=== PATIENT | male | born 1975 | race Caucasian/White ===

== ENCOUNTER 2020-07-26 06:57 | Emergency (ER) | payer SELFPAY ==
--- NOTE | 2020-07-26 16:02 | RAD ---
XR LUMBAR SPINE 2-3V 07/26/2020 9:00 AM Indication: Back pain COMPARISON: None available TECHNIQUE: 3 views of the lumbar spine are provided. Findings: Alignment of the lumbar spine is normal. Vertebral body heights are maintained. No acute fracture is identified. Disc heights are maintained. No significant endplate degenerative changes are identified. There is no significant facet arthropathy. No significant osseous neuroforaminal stenosis or spinal canal stenos is. Nonobstructive bowel gas pattern. Visualized portions of the sacrum appear intact. Impression: No acute fracture or malalignment of the lumbar spine. Electronically signed by: Kristan Syed MD (07/26/2020 3:59 PM) [id number]
--- NOTE | 2020-07-26 16:05 | RAD ---
AP VIEW OF THE PELVIS Clinical indications: Back pain. FINDINGS: There is mild degenerative spurring of the left femoral head and mild degenerative joint sp lyndsey narrowing of the left hip joint. No acute fracture dislocation or lytic process is seen. 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 THREE-VIEW LEFT ELBOW STUDY Clinical indications: Left elbow pain. FINDINGS: No joint effusion is seen. No acute fracture or dislocation or lytic process is seen. No si gnificant arthritic change is evident. IMPRESSION: No significant osseous abnormality. Electronically signed by: Jermain Lopez MD (07/26/2020 4:03 PM) [id number]
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
== END 2020-07-26 08:40 | disposition home or self-care (01) ==
LOC: ER 06:57
DX: M70.22 Olecranon bursitis, left elbow (principal); M54.5 Low back pain; M53.3 Sacrococcygeal disorders, not elsewhere classified; V47.9XXA Unspecified car occupant injured in collision with fixed or stationary object in traffic accident, initial encounter; Y93.89 Activity, other specified; Y92.89 Other specified places as the place of occurrence of the external cause; Y99.8 Other external cause status
CPT/HCPCS: 72100; 72170; 73080; 99284

== ENCOUNTER 2020-08-02 00:42 | Emergency (ER) | payer OTHER ==
[~2020-08-02] VITALS: Ht 167.6 cm; Wt 68.0 kg
[2020-08-02 00:42] VITALS: BP 143/81
[2020-08-02] MEDS ORDERED: TETRACAINE 0.5% OPHTH SOLUTION 4ML BOTTLE. ONE (00:58)
[2020-08-02] MEDS ORDERED: FLUORESCEIN 1MG EYE STRIP. ONE (00:58)
[2020-08-02] MEDS: TETRACAINE 0.5% OPHTH SOLUTION 4ML BOTTLE. OD ONE (01:11)
[2020-08-02] MEDS: FLUORESCEIN 1MG EYE STRIP. OD ONE (01:12)
--- NOTE | 2020-08-02 01:12 | PHYS DOC ---
Past History Past Medical History: No Pertinent History Past Surgical History: No Surgical History Alcohol Use: None General Adult EDM: Chief Complaint: EYE PROBLEMS HPI: HPI: Patient is a 45-year-old male coming in for right knee pain. Patient states he was contacted when he went to take them out tonight noticed that his right contacted ripped and only part of it came out. Is unsure if it is still in his eye. Complaining of burning pain. No other complaints. Review of Systems: Review of Systems: All other systems within normal limits except for as noted in the HPI Current Medications: Current Meds: Current Medications Medications (Trade) Dose Ordered Sig/Carlton Start Time Stop Time Status Last Admin Dose Admin Fluorescein Sodium (Ful-Araceli 1mg) 1 strip 1X ONCE 08/02/20 01:00 08/02/20 01:01 UNV Tetracaine HCl (Tetracaine) 1 drop 1X ONCE 08/02/20 01:00 08/02/20 01:01 UNV Allergies: Allergies: Allergies Coded Allergies Type Severity Reaction Last Updated Verified No Known Drug Allergies 07/26/20 No Physical Exam: PE: Constitutional: Well developed, well nourished, no acute distress, non-toxic appearance. [] HENT: Normocephalic, atraumatic, bilateral external ears normal, nose normal. [] Eyes: PERRLA, conjunctiva normal, no discharge. Slight injection of right con junctive a. Viewed with fluorescein and Wood's lamp, can see remainder of contact in the superior aspect of eye underneath upper eyelid. No abrasions or abnormalities of conjunctivae or cornea [] Neck: No rigidity, supple, no stridor. [] Cardiovascular: Regular rate and rhythm, brisk cap refill [] Lungs & Thorax: Non labored symmetric respirations, no tachypnea or respiratory distress [] Abdomen: Soft, nondistended. Skin: Warm, dry, no erythema, no rash. [] Back: Unremarkable Extremities: No deformities, range of motion grossly intact, no lower extremity edema [] Neurologic: Alert and oriented X 3, no focal deficits noted. [] Psychologic: Affect normal, judgement normal, mood normal. [] Current Patient Data: Vital Signs: Vital Signs Date Time Temp Pulse Resp B/P (MAP) Pulse Ox O2 Delivery O2 Flow Rate FiO2 08/02/20 00:42 98.1 71 18 143/81 (101) 98 Room Air EKG: EKG: [] Radiology/Procedures: Radiology/Procedures: Right eyelid pulled up and saline injected underneath eyelid with successful removal of foreign body/partial contact lens. Patient symptoms improved after procedure [] Heart Score: Risk Factors: Risk Factors: DM, Current or recent (<one month) smoker, HTN, HLP, family history of CAD, obesity. Risk Scores: Score 0 - 3: 2.5% MACE over next 6 weeks - Discharge Home Score 4 - 6: 20.3% MACE over next 6 weeks - Admit for Clinical Observation Score 7 - 10: 72.7% MACE over next 6 weeks - Early Invasive Strategies Course & Med Decision Making: Course & Med Decision Making Pertinent Labs and Imaging studies reviewed. (See chart for details) [] Dragon Disclaimer: Dragon Disclaimer: This electronic medical record was generated, in whole or in part, using a voice recognition dictation system. Departure Departure: Impression: Primary Impression: Foreign body of right eye Disposition: 01 DC HOME SELF CARE/HOMELESS Condition: IMPROVED Referrals: CARLO HUGHES MD (PCP) Patient Instructions: Eye - Conjunctival Foreign Body Additional Instructions: Do not wear contact lenses until pain and redness is resolved. Monitor for signs of infection. INDIGO CARDOSO MD Aug 02, 2020 01:12
== END 2020-08-02 01:15 | disposition home or self-care (01) ==
LOC: ER 00:42
DX: T15.91XA Foreign body on external eye, part unspecified, right eye, initial encounter (principal); X58.XXXA Exposure to other specified factors, initial encounter; Y93.89 Activity, other specified; Y92.89 Other specified places as the place of occurrence of the external cause; Y99.8 Other external cause status
CPT/HCPCS: 65235; 99284